=== PATIENT | female | born 1980 | race Caucasian/White ===

== ENCOUNTER 2021-02-28 16:23 | Emergency (ER) | payer SELFPAY ==
--- NOTE | 2021-02-28 18:07 | RAD REPORT ---
EXAM DESCRIPTION: CT - Head Brain Wo Cont - 02/28/2021 5:51 pm CLINICAL HISTORY: Headache COMPARISON: None. TECHNIQUE: Computed axial tomography of the head was obtained. IV contrast was not requested. All CT scans are performed using dose optimization technique as appropriate and may include automated exposure control or mA/KV adjustment according to patient size. FINDINGS: An intracranial bleed is not seen . The ventricles are normal in caliber. No extra-axial fluid collection is noted. Fluid within the sinuses/ mastoids is not seen. IMPRESSION: No acute intracranial abnormality is seen. If patient's symptoms persist MRI of the bra in would be recommended.
[2021-02-28] MEDS ORDERED: MEPERIDINE HCL 25 MG/ML SYR ONE (18:08)
[2021-02-28] MEDS ORDERED: dexAMETHasone 10 MG/ML VIAL ONE (18:08)
[2021-02-28] MEDS ORDERED: NA CHLORIDE 0.9% 1,000 ML ONE (18:08)
[2021-02-28] MEDS ORDERED: ONDANSETRON 4 MG/2 ML VIAL ONE (18:08)
--- NOTE | 2021-02-28 18:25 | ER ---
Nurse's Notes [facility] Name: Noreen Camarillo Age: 40 yrs Sex: Female : 1980 Arrival Date: 02/28/2021 Time: 16:28 Bed 2 Private MD: Diagnosis: Migraine Presentation: 02/28 16:32 Chief complaint: Patient states: i have been having a really bad migraine for 4 days tw2 now and for the past 3 days i have woke up with a nose bleed. no hx of migraines. Chief complaint: Patient states: also nausea. Coronavirus screen: At this time, the client does not indicate any symptoms associated with coronavirus-19. Ebola Screen: Patient denies travel to an Ebola-affected area in the 21 days before illness onset. Initial Sepsis Screen: Does the patient meet any 2 criteria? No. Patient's initial sepsis screen is negative. Does the patient have a suspected source of infection? No. Patient's initial sepsis screen is negative. Risk Assessment: Do you want to hurt yourself or someone else? Patient reports no desire to harm self or others. Onset of symptoms was February 28, 2021. 16:32 Method Of Arrival: Ambulatory tw2 16:32 Acuity: JEFFERY 3 tw2 Triage Assessment: 16:36 Headache History: Denies prior headaches. General: Appears in no apparent distress. tw2 slender, Behavior is calm, cooperative, appropriate for age. Pain: Pain currently is 8 out of 10 on a pain scale. Pain began 2-3 days ago. Also complains of nausea, photophobia. Neuro: Level of Consciousness is awake, alert, obeys commands, Oriented to person, place, time, situation, Reports blurred vision in right eye photophobia. Historical: - Allergies: 16:35 PENICILLINS; tw2 16:35 Codeine; tw2 16:35 Latex, Natural Rubber; tw2 - Home Meds: 16:35 Effexor XR 37.5 mg Oral cp24 1 cap once daily [Active]; tw2 - PMHx: 16:35 Hypertension; methamphetamine, user; tw2 16:38 Concussion; tw2 - PSHx: 16:35 Cholecystectomy; tw2 - Immunization history:: Adult Immunizations. - Social history:: Smoking status: Patient reports the use of cigarette tobacco products, 4 cigarettes, Patient uses street drugs, Methamphetamine (Meth) last use 27 days. - Family history:: not pertinent. - Hospitalizations: : No recent hospitalization is reported. Screenin:04 Abuse screen: Denies threats or abuse. Denies injuries from another. Nutritional hb screening: No deficits noted. Tuberculosis screening: No symptoms or risk factors identified. Fall Risk None identified. Assessment: 18:04 General: Appears in no apparent distress. uncomfortable, Behavior is calm, cooperative. hb Pain: Pain currently is 9 out of 10 on a pain scale. Neuro: Level of Consciousness is awake, alert, obeys commands, Oriented to person, place, time, situation, Reports headache in right parietal area, since 4 days ago photophobia. Cardiovascular: Patient's skin is warm and dry. Respiratory: Respiratory effort is even, unlabored, Respiratory pattern is regular, symmetrical. GI: No signs and/or symptoms were reported involving the gastrointestinal system. : No signs and/or symptoms were reported regarding the genitourinary system. EENT: No signs and/or symptoms were reported regarding the EENT system. Derm: Skin is pink, warm \T\ dry. Musculoskeletal: No signs and/or symptoms reported regarding the musculoskeletal system. Vital Signs: 16:32 BP 125 / 103; Pulse 66; Resp 17; Temp 97.9(TE); Pulse Ox 99% on R/A; Weight 61.23 kg tw2 (R); Height 5 ft. 1 in. (154.94 cm) (R); Pain 8/10; 18:19 BP 91 / 63; Pulse 60; Resp 15; Pulse Ox 99% on R/A; hb 16:32 Body Mass Index 25.51 (61.23 kg, 154.94 cm) tw2 Zoila Coma Score: 18:21 Eye Response: spontaneous(4). Verbal Response: oriented(5). Motor Response: obeys rn commands(6). Total: 15. 18:21 Eye Response: spontaneous(4). Verbal Response: oriented(5). Motor Response: obeys rn commands(6). Total: 15. ED Course: 16:28 Patient arrived in ED. mr 16:33 Triage completed. tw2 16:36 Arm band placed on. tw2 17:34 Mehdi Gonsalves MD is Attending Physician. rn 17:45 Donahue, Betty, RN is Primary Nurse. hb 18:00 Inserted saline lock: 20 gauge in left antecubital area, using aseptic technique. hb 18:04 Patient has correct armband on for positive identification. Bed in low position. Call light in reach. 18:44 No provider procedures requiring assistance completed. IV discontinued, intact, hb bleeding controlled, No redness/swelling at site. Administered Medications: 18:02 Drug: Zofran (Ondansetron) 4 mg Route: IVP; Site: left antecubital; hb 18:19 Follow up: Response: No adverse reaction hb 18:03 Drug: NS 0.9% 1000 ml Route: IV; Rate: 1000 ml; Site: left antecubital; hb 18:03 Drug: Demerol (meperidine) 25 mg Route: IVP; Site: left antecubital; hb 18:20 Follow up: Response: No adverse reaction hb 18:03 Drug: Decadron - Dexamethasone 10 mg Route: IVP; Site: left antecubital; hb 18:20 Follow up: Response: No adverse reaction hb Outcome: 18:25 Discharge ordered by . rn 18:44 Discharged to home ambulatory. hb 18:44 Condition: stable 18:44 Discharge instructions given to patient, Instructed on discharge instructions, follow up and referral plans. medication usage, Demonstrated understanding of instructions, follow-up care, medications. 18:44 Patient left the ED. hb Signatures: Maria A Tellez Roman, MD MD rn Baxter, Heather, RN RN hb Wise, Tara, RN RN tw2
--- NOTE | 2021-02-28 18:25 | EDPHYS ---
Physician Documentation [facility] Name: Noreen Camarillo Age: 40 yrs Sex: Female : 1980 Arrival Date: 02/28/2021 Time: 16:28 Bed 2 Private MD: ED Physician Mehdi Gonsalves HPI: 02/28 17:44 This 40 yrs old Female presents to ER via Ambulatory with complaints of rn Headache, Nose Bleed. 17:44 The patient complains of pain to the forehead. rn 17:45 The patient describes the headache as aching, intermittent. Onset: The symptoms/episode rn began/occurred 3 day(s) ago. Severity of symptoms: At its worst the pain was moderate, in the emergency department the pain has improved. Headache History: The patient has had previous headaches and this one is different than previous episodes. The symptoms are alleviated by nothing. the symptoms are aggravated by lights. The patient has experienced similar episodes in the past. The patient has not recently seen a physician. Reports used to have migraines when younger, went away, then had a concussion after head injury this past year with return of migraines for 2 weeks after injury. None since then. Now 4 days of headache, frontal, aching and throbbing/intermittent, non-radiating, no fever/neck stiffness/new trauma. Denies cough/congestion/sinus pressure. No focal weakness. No vision changes. . Historical: - Allergies: 16:35 PENICILLINS; tw2 16:35 Codeine; tw2 16:35 Latex, Natural Rubber; tw2 - Home Meds: 16:35 Effexor XR 37.5 mg Oral cp24 1 cap once daily [Active]; tw2 - PMHx: 16:35 Hypertension; methamphetamine, user; tw2 16:38 Concussion; tw2 - PSHx: 16:35 Cholecystectomy; tw2 - Immunization history:: Adult Immunizations. - Social history:: Smoking status: Patient reports the use of cigarette tobacco products, 4 cigarettes, Patient uses street drugs, Methamphetamine (Meth) last use 27 days. - Family history:: not pertinent. - Hospitalizations: : No recent hospitalization is reported. ROS: 17:45 Constitutional: Negative for fever, chills, and weight loss, Eyes: Negative for injury, rn pain, redness, and discharge, Neck: Negative for injury, pain, and swelling, Cardiovascular: Negative for chest pain, palpitations, and edema, Respiratory: Negative for shortness of breath, cough, wheezing, and pleuritic chest pain, Abdomen/GI: Negative for abdominal pain, nausea, vomiting, diarrhea, and constipation, Back: Negative for injury and pain, MS/Extremity: Negative for injury and deformity, Skin: Negative for injury, rash, and discoloration, Neuro: Negative for weakness, and seizure. Exam: 17:45 Constitutional: This is a well developed, well nourished patient who is awake, alert, rn and in no acute distress. Head/Face: Normocephalic, atraumatic. Eyes: Pupils equal round and reactive to light, extra-ocular motions intact. Periorbital areas with no swelling, redness, or edema. Neck: Trachea midline, no masses palpated, and no cervical lymphadenopathy. Supple, full range of motion without nuchal rigidity, or vertebral point tenderness. No Meningismus. Cardiovascular: Regular rate and rhythm. No pulse deficits. Respiratory: No increased work of breathing, no retractions or nasal flaring. Skin: Warm, dry with normal turgor. Normal color with no rashes, no lesions, and no evidence of cellulitis. MS/ Extremity: Pulses equal, no cyanosis. Neurovascular intact. Full, normal range of motion. Equal circumference. Neuro: Awake and alert, GCS 15, oriented to person, place, time, and situation. Cranial nerves II-XII grossly intact. Motor strength 5/5 in all extremities. + mild decreased sensation to soft touch RUE. Cerebellar exam normal. Vital Signs: 16:32 BP 125 / 103; Pulse 66; Resp 17; Temp 97.9(TE); Pulse Ox 99% on R/A; Weight 61.23 kg tw2 (R); Height 5 ft. 1 in. (154.94 cm) (R); Pain 8/10; 18:19 BP 91 / 63; Pulse 60; Resp 15; Pulse Ox 99% on R/A; hb 16:32 Body Mass Index 25.51 (61.23 kg, 154.94 cm) tw2 Zoila Coma Score: 18:21 Eye Response: spontaneous(4). Verbal Response: oriented(5). Motor Response: obeys rn commands(6). Total: 15. 18:21 Eye Response: spontaneous(4). Verbal Response: oriented(5). Motor Response: obeys rn commands(6). Total: 15. MDM: 17:35 Patient medically screened. rn 18:21 Differential diagnosis: migraine, vasomotor headache. Data reviewed: vital signs, rn nurses notes, radiologic studies, CT scan, and as a result, I will discharge patient. Counseling: I had a detailed discussion with the patient and/or guardian regarding: the historical points, exam findings, and any diagnostic results supporting the discharge/admit diagnosis. Counseling: I had a detailed discussion with the patient and/or guardian regarding: radiology results, the need for outpatient follow up, to return to the emergency department if symptoms worsen or persist or if there are any questions or concerns that arise at home. Response to treatment: the patient's symptoms have mildly improved after treatment, and as a result, I will discharge patient. Special discussion: I discussed with the patient/guardian in detail that at this point there is no indication for admission to the hospital. It is understood, however, that if the symptoms persist or worsen the patient needs to return immediately for re-evaluation. Based on the history and exam findings, there is no indication for further emergent testing or inpatient evaluation. I discussed with the patient/guardian the need to see the neurologist for further evaluation of the symptoms. ED course: NO acute findings on CT head, BP improved with pain medication, non-focal exam. Will dc home as migraine and recommend f/u with neuro as needed. . 02/28 17:36 Order name: CT Head Brain wo Cont rn 02/28 18:08 Order name: CT; Complete Time: 18:16 EDND 02/28 17:42 Order name: IV Start; Complete Time: 18:04 rn Administered Medications: 18:02 Drug: Zofran (Ondansetron) 4 mg Route: IVP; Site: left antecubital; hb 18:19 Follow up: Response: No adverse reaction hb 18:03 Drug: NS 0.9% 1000 ml Route: IV; Rate: 1000 ml; Site: left antecubital; hb 18:03 Drug: Demerol (meperidine) 25 mg Route: IVP; Site: left antecubital; hb 18:20 Follow up: Response: No adverse reaction hb 18:03 Drug: Decadron - Dexamethasone 10 mg Route: IVP; Site: left antecubital; hb 18:20 Follow up: Response: No adverse reaction hb Disposition: 02/28/21 18:25 Discharged to Home. Impression: Migraine. - Condition is Stable. - Discharge Instructions: Migraine Headache. - Medication Reconciliation Form, Thank You Letter, Antibiotic Education, Prescription Opioid Use form. - Follow up: Private Physician; When: As needed; Reason: Recheck today's complaints, Re-evaluation by your physician. - Problem is new. - Symptoms have improved. Signatures: Dispatcher [employer] EDMS Mehdi Gonsalves MD MD rn Baxter, Heather, RN RN Lora Shine RN RN tw2 Corrections: (The following items were deleted from the chart) 18:44 18:25 02/28/2021 18:25 Discharged to Home. Impression: Migraine. Condition is Stable. hb Discharge Instructions: Migraine Headache. Forms are Medication Reconciliation Form, Thank You Letter, Antibiotic Education, Prescription Opioid Use. Follow up: Private Physician; When: As needed; Reason: Recheck today's complaints, Re-evaluation by your physician. Problem is new. Symptoms have improved. rn
[2021-02-28 19:07] VITALS: TEMP 97.9; O2SAT 99
[2021-02-28 19:08] VITALS: BP 91/63
== END 2021-02-28 18:44 | disposition home or self-care (01) ==
LOC: ER 16:23
DX: G43.909 Migraine, unspecified, not intractable, without status migrainosus (principal); I10 Essential (primary) hypertension; F17.210 Nicotine dependence, cigarettes, uncomplicated
CPT/HCPCS: 70450; J1100; J2175; J2405; J7030